=== PATIENT | female | born 1970 | race Caucasian/White ===

== ENCOUNTER 2016-11-24 20:10 | Emergency (ER) | payer OTHER ==
[~2016-11-24 20:10] MED LIST: K-DUR 20MEQ TA20 MEQ PO; LEVOTHYROXIN0.088 MG PO; LEXAPRO 10MG10 MG PO; SIMVASTATIN40 MG PO; TRIAMTERENE/HCT1 TAB PO
--- NOTE | 2016-11-24 22:02 | ED MVC/FALL/TRAUMA COMPLAINT ---
History of Present Illness General Chief Complaint: Laceration Procedure Stated Complaint: LAC TO R TOE Source: patient, family Exam Limitations: no limitations Vital Signs & Intake/Output Vital Signs & Intake/Output Vital Signs Date Time Temp Pulse Resp B/P B/P Pulse O2 O2 Flow FiO2 Mean Ox Delivery Rate 11/24 2214 98.0 77 17 111/72 98 Room Air 11/244 Room Air 11/241 98.4 76 16 106/71 98 Room Air Allergies Coded Allergies: NO KNOWN ALLERGIES (04/20/11) Reconcile Medications Escitalopram Oxalate (Lexapro 10MG) 10 MG TAB 1 TAB PO DAILY MENTAL HEALTH ( Reported) Levothyroxine Sodium (Levothyroxine) 0.088 MG TAB 0.088 MG PO DAILY AC THYROID (Reported) POTASSIUM CHLORIDE (K-Dur) 20 MEQ TAB 1 TAB PO DAILY SUPPLEMENT (Reported) Simvastatin 40 MG TAB 1 TAB PO QPM CHOLESTEROL (Reported) TRIAMTERENE/HYDROCHLOROTHIAZID (Triamterene-Hctz 37.5-25 MG Tb) 1 TAB TAB 1 TAB PO DAILY WATER PILL (Reported) Triage Note: TRIAGE: CUT GREAT RIGHT TOE WITH JACKHAMMER METAL APPROX 45 MINS SACK MAKER. COVERED AND BLEEDING CONTROLLED. UNKOWN OF LAST TETANUS. OFFERED IN TRIAGE Triage Nurses Notes Reviewed? yes HPI: 46 yo F presenting with toe laceration. Patient was walking in living room, tripped striking right toe on son's metal jackhammer toy, sustained superficial avulsion of plantar surface of great toe over MTP joint, no motor or sensory deficits. Denies falls, head/neck trauma/pain, LOC, focal neurologic Sx. Unknown last tetanus. (NADIA BARNES MD) Past History Travel History Traveled to [place] past 21 day No Medical History Any Pertinent Medical History? see below for history Cardiovascular: hypertension Endocrine: hypothyroidism, HYPOKALEMIA Surgical History Surgical History: N Psychosocial History What is your primary language Macedonian Tobacco Use: Refused to answer Family History Hx Contributory? No (NADIA BARNES MD) Review of Systems Review of Systems Constitutional: Reports: no symptoms. Eyes: Reports: no symptoms. Ears, Nose, Throat, Mouth: Reports: no symptoms. Respiratory: Reports: no symptoms. Cardiovascular: Reports: no symptoms. Gastrointestinal/Abdominal: Reports: no symptoms. Genitourinary: Reports: no symptoms. Musculoskeletal: Reports: no symptoms. Skin: Reports: no symptoms. Neurological/Psychological: Reports: no symptoms. All Other Systems: Reviewed and Negative (NADIA BARNES MD) Physical Exam Physical Exam General Appearance: well developed/nourished, no apparent distress, alert, awake Head: atraumatic, normal appearance Eyes: Bilateral: PERRL, EOMI. Ears, Nose, Throat, Mouth: moist mucous membrane, Tympanic normal Neck: normal inspection, full range of motion, no midline tenderness Respiratory: normal breath sounds, no respiratory distress, lungs clear Cardiovascular: regular rate/rhythm, normal peripheral pulses Comments: Head: Atraumatic C-spine: No bony midline c-spine TTP Right foot: 0.5-1 cm avulsion of skin of plantar surface of right great toe overlying MTP, no TTP or pain with ROM of joint, 2+ DP/PT pulse, no motor or sensory deficits Core Measures ACS in differential dx? No Severe Sepsis Present: No Septic Shock Present: No (NADIA BARNES MD) Progress Differential Diagnosis: soft tissue injury, laceration, avulsion, tendon injury, joint injury Plan of Care: Current Medications Sig/Gavino Start time Last Medication Dose Stop Time Status Admin Tetanus/Diphtheria 0.5 ML ONCE ONE 11/24 2199 AC Toxoids Adsorbed 11/24 2200 ([facility]) Physician MDM: 46 yo F presenting with toe laceration. VSS, exam as above. DDx: Avulsion, no laceration amenable to primary closure, low concern for joint injury, tendon injury, fracture. Nature of avulsion discussed with patient, indicated that primary closure not possible, reassured. Avulsion site irrigated , dressed with bacitracin and Xeroform. Tetanus given. Discharged with return precautions for signs of infection, dressing supplies, plan to follow up with PMD in the next 2-3 days for wound recheck. (NADIA BARNES MD) Departure Departure Disposition: HOME OR SELF CARE Condition: Stable Clinical Impression Primary Impression: Avulsion of skin of toe Referrals: RAS ARCOS MD (PCP/Family) Additional Instructions: Keep avulsion site clean and covered with a dressing. Use xeroform and bacitracin for the first 48-72 hrs while avulsion site is healing. Return to the emergency department for any signs of infection at avulsion site, including redness, swelling, pain, or drainage of pus. Return to emergency department for any new, worsening, or concerning symptoms. Departure Forms: Customer Survey General Discharge Information (MOLLY PASTOR,NADIA) PA/MAP DRAFTER Co-Sign Statement Statement: ED Attending supervision documentation- [] I saw and evaluated the patient. I have also reviewed all the pertinent lab results and diagnostic results. I agree with the findings and the plan of care as documented in the PA's/MAP DRAFTER's documentation. [] I have reviewed the ED Record and agree with the PA's/MAP DRAFTER's documentation. [] Additions or exceptions (if any) to the PAs/MAP DRAFTER's note and plan are summarized below: [] Resident Co-Sign Statement Statement: ED Attending supervision documentation- [X] I saw and evaluated the patient. I have also reviewed all the pertinent lab results and diagnostic results. I agree with the findings and the plan of care as documented in the Resident's documentation. [X] I have reviewed the ED Record and agree with the Resident's documentation. [] Additions or exceptions (if any) to the Resident's note and plan are summarized below: [] (CE PATSOR,YAHAIRA White)
[2016-11-24 22:14] VITALS: BP 111/72
== END 2016-11-24 22:15 ==
LOC: ERH 20:10
DX: S91.111A Laceration without foreign body of right great toe without damage to nail, initial encounter (principal); W31.1XXA Contact with metalworking machines, initial encounter
CPT/HCPCS: 90471; 90714

== ENCOUNTER 2017-10-01 19:17 | Emergency (ER) | payer OTHER ==
[~2017-10-01] VITALS: Ht 154.9 cm; Wt 61.2 kg
[2017-10-01 19:24] VITALS: BP 113/77
--- NOTE | 2017-10-01 19:47 | ED HAND/WRIST INJURY COMPLAINT ---
History of Present Illness General Chief Complaint: Hand or Wrist Injury Stated Complaint: PT CUT HER FINGERS WITH A KNIFE ON LT HAND Source: patient Exam Limitations: no limitations Vital Signs & Intake/Output Vital Signs & Intake/Output Vital Signs Date Time Temp Pulse Resp B/P B/P Pulse O2 O2 Flow FiO2 Mean Ox Delivery Rate 10/014 96.8 83 18 113/77 97 Room Air Room Air ED Intake and Output 10/02 0000 10/01 1200 Intake Total 0 Output Total Balance 0 Intake, Oral 0 Patient 135 lb Weight Weight Reported by Patient Measurement Method Allergies Coded Allergies: NO KNOWN ALLERGIES (04/20/11) Reconcile Medications Escitalopram Oxalate (Lexapro 10MG) 10 MG TAB 1 TAB PO DAILY MENTAL HEALTH ( Reported) Levothyroxine Sodium (Levothyroxine) 0.088 MG TAB 0.088 MG PO DAILY AC THYROID (Reported) POTASSIUM CHLORIDE (K-Dur) 20 MEQ TAB 1 TAB PO DAILY SUPPLEMENT (Reported) Simvastatin 40 MG TAB 1 TAB PO QPM CHOLESTEROL (Reported) TRIAMTERENE/HYDROCHLOROTHIAZID (Triamterene-Hctz 37.5-25 MG Tb) 1 TAB TAB 1 TAB PO DAILY WATER PILL (Reported) Triage Note: PT TO ED WITH C/O LEFT INDEX FINGER LACERATION, S/P CUTTING HAMBURGER WITH A KNIFE. LAST TETANUS: 10 YEARS AGO. Triage Nurses Notes Reviewed? yes Occurred: just prior to arrival Duration: minute(s): Timing: single episode today Injury Environment: home Severity: mild Pain/Injury Location: Left: 2nd finger. No Modifying Factors: none HPI: 47-year-old female comes into the emergency room for further evaluation of laceration to left index finger. Reports that she cut her finger with a knife while she was cooking in the kitchen. Some superficial cut to left index finger. Some associated bleeding. Lastunknown. Mild throbbing pain. Continuous. ([place]) Past History Travel History Traveled to [place] past 21 day No Medical History Any Pertinent Medical History? see below for history Neurological: NONE EENT: NONE Cardiovascular: hypertension Respiratory: NONE Gastrointestinal: NONE Hepatic: NONE Renal: NONE Musculoskeletal: NONE Psychiatric: NONE Endocrine: hypothyroidism, HYPOKALEMIA Blood Disorders: NONE Cancer(s): NONE FLATBED OWNER OPERATOR/Reproductive: ABLATION Tetanus Vaccine: 10/01/17 Surgical History Surgical History: N Psychosocial History What is your primary language Kazakh Tobacco Use: Current Daily Use Daily Tobacco Use Amount/Type: => 5 Cigarettes daily ETOH Use: occasional use Illicit Drug Use: denies illicit drug use Family History Hx Contributory? No ([place]) Review of Systems Review of Systems Constitutional: Reports: no symptoms. EENTM: Reports: no symptoms. Respiratory: Reports: no symptoms. Cardiovascular: Reports: no symptoms. GI: Reports: no symptoms. Genitourinary: Reports: no symptoms. Musculoskeletal: Reports: no symptoms. Skin: Reports: see HPI. Neurological/Psychological: Reports: no symptoms. Hematologic/Endocrine: Reports: no symptoms. Immunologic/Allergic: Reports: no symptoms. All Other Systems: Reviewed and Negative ([place]) Physical Exam Physical Exam General Appearance: well developed/nourished, mild distress Head: atraumatic Eyes: Bilateral: normal appearance. Ears, Nose, Throat: normal ENT inspection, hearing grossly normal Neck: normal inspection Cardiovascular/Respiratory: no respiratory distress Back: normal inspection Hand Left: normal range of motion, 2nd finger, Centimeter superficial laceration over distal phalanx, no involvement of nail bed, cap refill intact Hand Right: normal inspection Neurologic/Tendon: normal sensation, normal motor functions, normal tendon functions, responds to pain, no evidence tendon injury, no pulse deficit Skin: intact, normal color, warm/dry ([place]) Progress Differential Diagnosis: fracture, soft tissue foreign body, tendon laceration Plan of Care: Current Medications Sig/Gavino Start time Last Medication Dose Stop Time Status Admin Lidocaine 20 ML ONCE ONE 10/01 1944 UNVr 10/01 (Lidocaine 1%) 10/01 Tetanus/Diphtheria 0.5 ML ONCE ONE 10/01 1929 UNVr 10/01 Toxoids Adsorbed 10/01 (Decavac) ([place]) Departure Departure Disposition: HOME OR SELF CARE Condition: Stable Clinical Impression Primary Impression: Finger laceration Referrals: Raquel Lynch MD (PCP/Family) Additional Instructions: Watch for signs of infection such as redness or discharge fever chills. Stain finger splint for the next 5 days. Return if any other concerns. Please go over all results of today's visit with your primary care doctor. Contact your primary care doctor to let them know you were here in the emergency room. There may be nonspecific findings which may not be related to your visit today here in the emergency room but may require further evaluation and chronic monitoring by your primary care doctor. If you had a laceration today the chance of foreign body always remains. You should follow-up with your primary care doctor for recheck in 3-5 days for a wound check. If you had an x-ray done there is a chance that a fracture could have been missed on initial read and you should follow-up with your primary care doctor for repeat x-rays if symptoms persist. If your blood pressure was elevated here in the emergency room please have rechecked by [facility] primary care doctor within the next 48. If you were prescribed a narcotic here in the emergency room or any type of controlled substances you're not allowed to drive while taking this medication or operate any type of heavy machinery. Narcotics can make you feel lightheaded dizziness nausea and can cause constipation. You may need to machine operator hop picker a stool softener. Thank you for choosing [facility] emergency room. Please return to the emergency room immediately if you have any other concerns worsening of symptoms. Departure Forms: Customer Survey General Discharge Information ([place]) PA/MERCANTILE AGENT Co-Sign Statement Statement: ED Attending supervision documentation- [] I saw and evaluated the patient. I have also reviewed all the pertinent lab results and diagnostic results. I agree with the findings and the plan of care as documented in the PA's/MERCANTILE AGENT's documentation. [X] I have reviewed the ED Record and agree with the PA's/MERCANTILE AGENT's documentation. [] Additions or exceptions (if any) to the PAs/MERCANTILE AGENT's note and plan are summarized below: [] (Milly PASTOR,Clif White) Procedures Laceration/Wound Repair Progress: 0.5 cm laceration to left index finger, superficial, irrigated with saline and Betadine, Dermabond use, dry sterile dressing, finger splint, sterile technique, patient tolerated procedure well, ([place])
== END 2017-10-01 19:53 ==
LOC: ERH 19:17
DX: S61.211A Laceration without foreign body of left index finger without damage to nail, initial encounter (principal); W26.0XXA Contact with knife, initial encounter; Y93.G1 Activity, food preparation and clean up; Y92.009 Unspecified place in unspecified non-institutional (private) residence as the place of occurrence of the external cause
CPT/HCPCS: 90471; 90714

== ENCOUNTER 2018-01-10 20:57 | Emergency (ER) | payer OTHER ==
[~2018-01-10] VITALS: Ht 154.9 cm; Wt 60.8 kg
[2018-01-10 21:18] VITALS: BP 124/79
== END 2018-01-11 01:08 | disposition admitted as inpatient to this hospital (09) ==
LOC: ERH 20:57
DX: S60.562A Insect bite (nonvenomous) of left hand, initial encounter (principal)